=== PATIENT | male | born 1945 | race African-American/Black ===

== ENCOUNTER 2025-03-16 00:33 | Emergency (ER) | payer MEDICARE | END 2025-03-16 04:14 | disposition home or self-care (01) | LOC: BURERS 00:33 | DX: K94.03 Colostomy malfunction (principal); E11.649 Type 2 diabetes mellitus with hypoglycemia without coma; I11.0 Hypertensive heart disease with heart failure; I50.9 Heart failure, unspecified; Z86.73 Personal history of transient ischemic attack (TIA), and cerebral infarction without residual deficits; Z87.891 Personal history of nicotine dependence | CPT/HCPCS: 36416; 99284 ==

== ENCOUNTER 2025-03-16 19:24 | Emergency (ER) | payer MEDICARE ==
[2025-03-16 20:25] LABS: Hematocrit 35.9 % (42.0-52.0); Hemoglobin 12.1 g/dL (14.0-18.0); Mean Corpuscular Hemoglobin 20.7 pg (27.0-31.0); Mean Corpuscular Volume 61.4 fl (78.0-98.0); Platelet Count 201 10x3/uL (130-400); Red Blood Cell (RBC) Count 5.85 mill/uL (4.70-6.10); White Blood Cell (WBC) Count 7.6 10x3/uL (4.8-10.8)
[2025-03-16 20:35] LABS: ALT (SGPT) 11 U/L (Less than 45); AST (SGOT) 14 U/L (11-34); Albumin 3.4 g/dL (3.1-4.5); Alkaline Phosphatase 94 U/L (40-110); Anion Gap 16 mmol/L (10-20); BUN (Urea Nitrogen) 81 mg/dL (8.4-25.7); Bilirubin, Total 0.5 mg/dL (0.3-1.2); Calc. Creatinine Clearance 0 mL/min (70-130); Calcium 9.5 mg/dL (7.8-10.44); Carbon Dioxide 12 mmol/L (23-31); Chloride 114 mmol/L (98-107); Globulin 5.1 g/dL (2.4-3.5); Glucose 90 mg/dL (83-110); Sodium 136 mmol/L (136-145)
[2025-03-16 20:37] LABS: Potassium 6.3 mmol/L (3.5-5.1)
[2025-03-16 20:39] LABS: #Basophils 0.1 thou/uL (0.0-0.2); #Eosinophils 0.3 thou/uL (0.0-0.7); #Lymphocytes 1.1 thou/uL (1.20-3.40); #Monocytes 0.7 thou/uL (0.11-0.59); #Neutrophils 5.5 thou/uL (1.40-6.50); %Basophils 0.8 % (0.0-1.0); %Eosinophils 3.5 % (0.0-10.0); %Lymphocytes 14.4 % (21.0-51.0); %Monocytes 9.7 % (0.0-10.0); %Neutrophils 71.7 % (42.0-75.0); Reflex for Review?? NO
[2025-03-16 20:41] LABS: MDiff Complete? YES
[2025-03-16] MEDS ORDERED: Dextrose 50% Abboject 50 ML SYRINGE ONE (21:03)
[2025-03-16] MEDS ORDERED: Calcium Gluc 4.6 MEQ/10 ML (100 MG/ML) ONE (21:03)
[2025-03-16 21:06] LABS: Magnesium 1.9 mg/dL (1.6-2.6)
[2025-03-16] MEDS ORDERED: Sodium Bicarb 50 MEQ/50 ML Abboject 8.4% SYRINGE ONE (21:24)
[2025-03-16 21:43] LABS: CO2 Tension (PvCO2) 35.8 mmHg (42.0-51.0)
[2025-03-16 21:44] LABS: Bicarbonate (HCO3v) 14.0 mmol/L (22.0-28.0); Calcium, Ionized 1.41 mmol/L (1.15-1.33); Chloride 119 mmol/L (98-107); Hemoglobin - Calc 10.9 g/dL (14.0-18.0); Potassium 6.7 mmol/L (3.5-5.1); Sodium 138 mmol/L (138-145); T. Carbon Dioxide 15.1 mmol/L (22.0-28.0); vO2 Saturation-calc 74.2 % (60.0-85.0)
== END 2025-03-16 19:45 | disposition home or self-care (01) ==
LOC: BURERS 19:24
DX: N17.9 Acute kidney failure, unspecified (principal); E11.649 Type 2 diabetes mellitus with hypoglycemia without coma; E87.5 Hyperkalemia; I11.0 Hypertensive heart disease with heart failure; I50.9 Heart failure, unspecified; Z86.73 Personal history of transient ischemic attack (TIA), and cerebral infarction without residual deficits; Z79.899 Other long term (current) drug therapy; E78.5 Hyperlipidemia, unspecified; Z79.82 Long term (current) use of aspirin
CPT/HCPCS: 36416; 74176; 80053; 82330; 82803; 83735; 84100; 85025; 93005; 96374; 96375; 36415-59; J0612; J1815; J7999